=== PATIENT | female | born 1950 | race Caucasian/White ===

== ENCOUNTER 2016-08-02 20:01 | Inpatient (IN) | payer MEDICARE, OTHER ==
--- NOTE | ~2016-08-02 | HP ---
History And Physical [address] [place]. [address] NAME: MONCHO MORRISON : 54 STATUS : ADM IN [facility]#: [id number] AGE: 65 ADM/REG DATE : 08/02/16 MR#: [id number] REPORT SERV DATE: 08/03/16 DICTATED BY: MICHELLE HANDLEY DATE: 08/02/16 REPORT STATUS : Draft TRANSCRIBED BY: MODL DATE: 08/02/16 DATE OF ADMISSION: 08/02/2016 CHIEF COMPLAINT: Shortness of breath, uncontrolled blood sugar. Direct admission/transfer from outside hospital facility. HISTORY OF THE PRESENT ILLNESS: Obtained from the patient as well as from reports to our Hospitalist Service from [facility] at [facility] Emergency Room Department, has requested direct admission under our Hospitalist Service. Also, prior medical records available to us were thoroughly reviewed. According to the information available, the patient is a pleasant 65-year-old white woman with known history of COPD on chronic home oxygen at 2 L of oxygen by nasal cannula. Presently not smoking, chronic pain syndrome, diabetes type 2, insulin dependent, who was brought to [facility] Emergency Room Department because of increasing shortness of breath. The patient states that she started getting short of breath two or three days ago when some of her friends smoking around her. Since then, the patient has started to have a cough mostly nonproductive, but also chest tightness with the shortness of breath. No diaphoresis. No palpitations. The patient had used the regular bronchodilators that she has at home and has continued on oxygen supplementation with no relief, therefore today she called EMS. Upon arrival to [facility] Emergency Room Department, the patient was noticed to have a moderate respiratory distress, tachypneic on oxygen saturation around 92% on 2 L by nasal cannula. Further investigation at [facility] Emergency Room Department revealed a possible UTI as well as elevated white cell count of 17.9. She has received treatment with bronchodilators, IV Lasix. Continue oxygen supplementation with the improvement in her symptoms. Therefore, the patient was referred to our Hospitalist Service as a direct admission/transfer for further management and evaluation. The patient upon arrival does not have any chest pain. She is hungry and she still has some short of breath, still on 3 L of oxygen by nasal cannula with improvement symptomatically of her shortness of breath and dyspnea and lower extremity edema. PAST MEDICAL HISTORY: As above. Significant for COPD/asthma, presently on chronic home oxygen on 2 L of oxygen by nasal cannula. History of sleep apnea, on CPAP at night. History of CHF, diastolic dysfunction. History of atrial fibrillation, presently in normal sinus rhythm. Follow up by Dr. Perdue, Cardiology at [facility]. History of hypertension. History of reported coronary artery disease, uncertain about details on anatomy of her coronary arteries. History of diabetes type 2, on insulin. History of hyperlipidemia, obesity. History of chronic pain syndrome and chronic lower back pain with opioid dependence. History of depression and anxiety with panic attacks. History of cerebrovascular disease with prior CVA by report. History of GERD. History of osteoarthritis. PAST SURGICAL HISTORY: Many surgical intervention including hysterectomy, cholecystectomy in 2010, previously bilateral tubal ligation, bilateral foot surgery, hemorrhoidectomy, abdominal hernia repairs x4, several cardiac catheterization, vaginal and rectal tear repair, bladder tack, bilateral eye surgery, blepharoplasty, bilateral carpal tunnel release, trigger finger release on the left fourth finger, back surgery several times in History And Physical [address] [address] NAME: MONCHO MORRISON : 54 STATUS : ADM IN [facility]#: [id number] AGE: 65 ADM/REG DATE : 08/02/16 MR#: [id number] REPORT SERV DATE: 08/03/16 DICTATED BY: MICHELLE HANDLEY DATE: 08/02/16 REPORT STATUS : Draft TRANSCRIBED BY: MODTim DATE: 08/02/162011 as well as in 2016. ALLERGIES: TO STADOL, PENICILLIN, SULFA ANTIBIOTIC, CODEINE, ASPIRIN, IBUPROFEN, DOXYCYCLINE. HOME MEDICATION LIST: According to the list provided, the patient is supposed to take Norvasc 10 mg p.o., q.h.s., Flonase nasal spray two sprays each nostril q.h.s., Lasix 40 mg p.o. b.i.d., Atarax 50 mg p.o. b.i.d. scheduled (prescribed 4 times a day), Eliquis 5 mg p.o. b.i.d., Neurontin 800 mg p.o. t.i.d., Lantus insulin 40 units subcu b.i.d., lisinopril 40 mg p.o. daily, NovoLog sliding scale as per sliding scale at home q.i.d., Opana extended release 10 mg p.o. b.i.d., oxycodone 20 mg p.o. q.i.d. scheduled for pain, Protonix 40 mg p.o. daily, Klonopin 0.5 mg p.o. daily p.r.n. anxiety, Breo Ellipta 100/25 mcg one inhalation daily, albuterol Ventolin inhaler 2 puffs inhalation q.i.d., p.r.n. shortness of breath, Prozac 20 mg p.o. daily, Toprol-XL 100 mg p.o. b.i.d., potassium KCl 20 mEq p.o. daily, vitamin B12 1000 mcg IM every month, Mucinex 600 mg p.o. b.i.d. scheduled, albuterol nebulizer one inhalation q.i.d., p.r.n. shortness of breath. FAMILY HISTORY: Significant for coronary artery disease, hypertension, ovarian cancer, and other forms of female cancer, diabetes and prior stroke. SOCIAL HISTORY: She lives with family. . Denies tobacco abuse. Denies alcohol abuse. Denies illicit recreational drug abuse. She used to smoke in the past. REVIEW OF SYSTEMS: As per H and P, otherwise negative in all review of systems. Please note, the comprehensive review of system was obtained and pertinent positives were including in the H and P. PHYSICAL EXAMINATION: GENERAL: Pleasant, co-operant, mild respiratory distress. Significantly improved presently from the initial presentation at [facility] emergency room [place]. VITAL SIGNS: Upon arrival on our floor: Blood pressure 157/76, pulse 78, respiratory rate 18, temperature 98.7, oxygen saturation 96% on 3 L by nasal cannula. HEENT: Pupils equal, round, and reactive to light. Extraocular movements intact. Throat, mild erythema. No exudate. NECK: Supple. No JVD. No bruits. No thyromegaly. No lymph nodes. LUNGS: Bilateral air entry. Good airway movement. Few scattered wheezes bilaterally and few bibasilar crackles. HEART: Positive S1, S2. Regular rate and rhythm. Positive mitral regurgitation. Murmur at the apex. PMI not displaced by palpation. No rub. No gallop. ABDOMEN: Positive bowel sounds. Soft, obese, nontender, no guarding, no hepatosplenomegaly. EXTREMITIES: Decreased range of motion. Osteoarthritic changes. No clubbing, no cyanosis. +1 to +2 edema of bilateral calves. No calf tenderness. +2 pulses. NEUROLOGIC: Alert and oriented x3. Grossly nonfocal. Cranial nerves 2 though 12 grossly intact. Motor strength 5/5 symmetrical bilateral. Deep tendon reflexes 2/2 symmetrical bilateral. Appropriate mood and affect, even though slightly anxious upon initial presentation. BACK: Decreased range of motion. No focal localized tenderness. No CVA tenderness. History And Physical [address] [address] NAME: MONCHO MORRISON : 54 STATUS : ADM IN [facility]#: [id number] AGE: 65 ADM/REG DATE : 08/02/16 MR#: [id number] REPORT SERV DATE: 08/03/16 DICTATED BY: MICHELLE HANDLEY DATE: 08/02/16 REPORT STATUS : Draft TRANSCRIBED BY: YASMINE DATE: 08/02/16 SKIN: No bruises, no rashes, no lacerations. SIGNIFICANT LABORATORY DATA: No laboratory data available as the patient is a direct admission/transfer from outside hospital facility. Review of the medical records sent over of the patient from [facility] Emergency Room Department showed white cell count 17.9, hemoglobin 12.7, platelet count 214. Chest x-ray by report from [facility] show a chronic interstitial changes. No acute abnormality. BNP 123, which is slightly elevated. EKG (personal reading) showed normal sinus rhythm at 67 beats per minute. No acute ST elevation. Troponin I 0.01, which is within normal limits. Sodium 125, potassium of 4.9, chloride 86, bicarb 27, BUN 32, creatinine 1.4, glucose 685. Calcium at 9.2. Liver function tests within normal limits. CK#1 152, hyperglycemia of 685, corrected sodium again was 134, which is within normal limits. Urinalysis showed largely white cells 10 to 25, 3+ bacteria, moderate blood. ABG done on room air showed pH 7.35/PaCO2 of 46/PO2 of 64. ASSESSMENT AND PLAN AND PROBLEM LIST: The patient is a pleasant 65-year-old white woman, admitted as a direct admission/transfer from [facility] Emergency Room Department for chronic obstructive pulmonary disease exacerbation, urinary tract infection, severely uncontrolled diabetes, and reported chest pain. IMPRESSION: 1. Pulmonary. a. Chronic obstructive pulmonary disease exacerbation acute. b. Acute on chronic hypoxemic respiratory failure. c. Obstructive sleep apnea, on CPAP machine at night. For all the above, the patient has been admitted on the Hospitalist Service under telemetry setting. We are going to continue oxygen supplementation. We are going to provide bronchodilator therapy with Dulera 200/5 two puffs b.i.d. and DuoNeb, IV Solu-Medrol with rapid tapering has lot of improvement in her symptoms. Continue antibiotic coverage as the patient has received Levaquin already at [facility] Emergency Room Department. We are going to continue symptomatic treatment and oxygen supplementation, Mucinex DM, Flonase nasal spray, and continue to use home CPAP machine at night. 2. Urinary tract infection with hematuria likely acute cystitis. Repeat urine culture and continue to monitor urine culture from [facility] Emergency Room Department. Continue Levaquin 750 mg IV daily. 3. Cardiovascularly:. a. Chest pain, atypical, but with moderate risk for coronary artery disease etiology. b. Paroxysmal atrial fibrillation, now in normal sinus rhythm. c. Hypertension, essential hypertension. d. Acute on chronic diastolic dysfunction, congestive heart failure. For all the above, we are going to continue to monitor CK and troponin I, monitor EKG. Evaluate prior available 2D echo. Continue DONATO inhibitor and continue gentle IV diuresis with IV Lasix. Use IV hydralazine p.r.n. for increased blood pressure. Continue Eliquis for now. 4. Endocrinology problem :. a. Diabetes type 2, insulin dependent, severely uncontrolled with complications including hyperglycemia. For all the above, we are going to continue History And Physical [address] [address] NAME: MONCHO MORRISON : 54 STATUS : ADM IN PAT#: [id number] AGE: 65 ADM/REG DATE : 08/02/16 MR#: [id number] REPORT SERV DATE: 08/03/16 DICTATED BY: MICHELLE HANDLEY DATE: 08/02/16 REPORT STATUS : Draft TRANSCRIBED BY: YASMINE DATE: 08/02/16 long-acting insulin with Lantus/Levemir, sliding scale with insulin, provide diabetic education and dietary changes. b. Hyperlipidemia, mixed type. Check lipid profile in the a.m. Consider to have the statin. c. Obesity, recommend weight loss and moderate structured exercise. 5. Neurologic and psychiatric problem with:. a. Chronic pain syndrome with chronic back pain and opioid dependence. We are going to restart the patient's chronic pain medications. Use extra IV morphine p.r.n. for increased pain control. b. Anxiety and panic attacks and depression. Continue home medications. Provide emotional support. 6. Cerebrovascular disease with prior history of cerebrovascular accident. Continue blood pressure management. Lipid management. Consider to start the aspirin. 7. Gastroesophageal reflux disease without esophagitis. Continue Protonix anti- reflux/anti-gastroesophageal reflux disease instructions discussed with the patient. 8. Osteoarthritis, osteoporosis, deconditioning, and debilitation. Provide adequate pain control. Consider physical therapy evaluation. PROGNOSIS: Moderately good for this admission. Discussed with patient. Questions were answered in full. Please note, the patient is a full code at this moment as discussed with the patient at baseline. Please note also the written H and P, and written orders and instructions. RF/YASMINE Michelle Handley M.D. / [id number] CC: Lupe Major M.D. Chun C. Huang, MD
--- NOTE | ~2016-08-02 | DS ---
Discharge Summary [facility] [address] [place]. [address] NAME: MONCHO MORRISON : 54 STATUS : DIS IN PAT#: [id number] AGE: 65 ADM/REG DATE : 08/02/16 MR#: [id number] REPORT SERV DATE: 08/06/16 DICTATED BY: JENNY VILLAGOMEZ DATE: 08/05/16 REPORT STATUS : Draft TRANSCRIBED BY: MODL DATE: 08/05/16 ADMISSION DATE: 08/02/2016 DISCHARGE DATE: 08/05/2016 DISCHARGE DIAGNOSES: 1. Diabetes mellitus with uncontrolled status with hyperglycemia, persistent. The patient's insulin was increased and it is better controlled and clinically improved. 2. BMI 43. 3. Chronic pain management, chronic opioid use. 4. UTI with Escherichia coli. The patient will be discharged with nitrofurantoin. She was asymptomatic. 5. Chronic Eliquis use. 6. Hyponatremia secondary to hyperglycemia. 7. Chronic kidney disease. HISTORY OF PRESENT ILLNESS: This is a 65-year-old female patient, who came to the hospital with chest tightness and wheezing at the local emergency room, was found to have significant chest tightness, and the patient was transferred to [facility] for that reason. Please see dictated H and P. HOSPITAL COURSE: She was admitted to hospital with multiple medical problems including uncontrolled diabetes with morbid obesity, sleep apnea, chronic pain medication use, and also possibly volume overload, and she was found to have significant hyponatremia because of the hyperglycemia. She was treated with increased IV diuretics and IV steroid, and improved. However, her sugar remained in high status. Her insulin was adjusted and now, her sugar is much improved and kidney function and other lab work are also improved. She does not have any wheezing or tightness anymore. She takes furosemide twice a day at home and we are going to continue that medical treatment. Informed that she needs to use CPAP when she is taking a nap. She voiced understanding. Also, her insulin was increased. She will be discharged to home in stable condition with followup with her primary care physician. Increased insulin dose. DISCHARGE MEDICATIONS: Continue Norvasc 10 mg once a day, Eliquis 5 mg twice a day, Prozac 20 mg once in the morning time, Flonase once a day, Neurontin 300 mg three times a day, Mucinex twice a day, Lantus was increased to 75 units twice a day, NovoLog was increased 15 units before meal, Toprol-XL 100 mg twice a day, Protonix 40 mg once a day, vitamin B12 once a day, hydroxyzine 50 mg twice a day, Roxicodone 20 mg four times a day, Opana 10 mg twice a day, albuterol as needed, Lasix 40 mg twice a day, Klonopin 0.5 mg as needed, Breo once a day, Ventolin twice a day, potassium was discontinued, and a few more days of prednisone. TIME SPENT: More than 30 minutes in patient education and coordination. DICTATED BY: Jenny Villagomez M.D. Discharge Summary [address] [facility] [place] [address] NAME: MONCHO MORRISON : 54 STATUS : DIS IN PAT#: [id number] AGE: 65 ADM/REG DATE : 08/02/16 MR#: [id number] REPORT SERV DATE: 08/06/16 DICTATED BY: JENNY VILLAGOMEZ DATE: 08/05/16 REPORT STATUS : Draft TRANSCRIBED BY: YASMINE DATE: 08/05/16 LUPE/YASMINE Jenny Villagomez M.D. / [id number] CC: Lupe Major M.D.
[~2016-08-02 20:01] MED LIST: *UNABLE2; ALBUTEROL0.63 MG/3; ALBUTEROL0.63 MG/3 INH; ATARAX50B; ATARAX50B PO; B121000P; B121000P IM; B121000P IM/SC; BREO ELLIPTA; BREO ELLIPTA INH; BYETTA SC; CARTIA XT120 MG/24 PO; DULERA 200 MCG/13 GM INH; ELIQUIS 5 MG TAB5 MG; ELIQUIS 5 MG TAB5 MG PO; FERROUS SULF325 M1; FLONASE; FLONASE NAS; IMOD PO; KDUR10 PO; KLONO5; KLONO5 PO; KLOR-CON 1010 MEQ PO; KOMBIGLYZE XR1 EACH PO; L40; L40 PO; LANTUS SC; LANTUSCART; LANTUSCART SC; LIPITOR20 PO; LISINOPRIL40 MG; LISINOPRIL40 MG PO; LOZOLTAB; LOZOLTAB PO; MAGOX4 PO; MUCINEX600 MG PO; NEUR800; NEUR800 PO; NORV5 PO; NOVOLOG SC; NOVOPEN; OPANA ER10 MG; OPANA ER10 MG PO; OPANA ER15 MG PO; OXYCOD; OXYCOD PO; OXYIR5 MG PO; P20 PO; PRIN20 PO; PROAIR HFA INH; PROTONIX; PROTONIX PO; PROVENTSOL INH; PROZAC; PROZAC PO; ROXICODONE15 MG PO; TOPXL100; TOPXL100 PO; TOPXL50; Toprol Xl; VENTOLIN HFA; VENTOLIN HFA INH; ZITH250 PO; [UNRECOGNIZED DRUG - OTHER] PO; [UNRECOGNIZED DRUG - REMARK] PO
[2016-08-02] MEDS ORDERED: NORV5 PO (20:55)
[2016-08-02] MEDS ORDERED: FLONASE NAS (20:56)
[2016-08-02] MEDS ORDERED: L40 PO (20:56)
[2016-08-02] MEDS ORDERED: NEUR800 PO (20:57)
[2016-08-02] MEDS ORDERED: ELIQUIS 5 MG TAB5 MG PO (20:57)
[2016-08-02] MEDS ORDERED: ATARAX50B PO (20:57)
[2016-08-02] MEDS ORDERED: NOVOPEN SC (20:58)
[2016-08-02] MEDS ORDERED: LANTUSCART SC (20:58)
[2016-08-02] MEDS ORDERED: LISINOPRIL40 MG PO (20:58)
[2016-08-02] MEDS ORDERED: OXYCOD PO (20:59)
[2016-08-02] MEDS ORDERED: OPANA ER10 MG PO (20:59)
[2016-08-02] MEDS ORDERED: PROTONIX PO (21:00)
[2016-08-02] MEDS ORDERED: KLONO5 PO (21:00)
[2016-08-02] MEDS ORDERED: VENTOLIN HFA INH (21:01)
[2016-08-02] MEDS ORDERED: BREO ELLIPTA INH (21:01)
[2016-08-02] MEDS ORDERED: PROZAC PO (21:02)
[2016-08-02] MEDS ORDERED: KDUR20 PO (21:02)
[2016-08-02] MEDS ORDERED: TOPXL100 PO (21:02)
[2016-08-02] MEDS ORDERED: B121000P IM (21:03)
[2016-08-02] MEDS ORDERED: MUCINEX600 MG PO (21:04)
[2016-08-02] MEDS ORDERED: ALBUTEROL0.083 % INH (21:07)
[2016-08-02 22:39] LABS: BASOPHILS 0.1 %; BASOPHILS ABSOLUTE 0.01 10/3/uL (0.0-0.16); EOSINOPHILS 0.2 %; EOSINOPHILS ABSOLUTE 0.04 10/3/uL (0.0-0.53); HEMATOCRIT 39.9 % (36.0-48.0); HEMOGLOBIN 13.3 g/dL (12.0-16.0); IMMATURE GRANULOCYTES 0.4 %; IMMATURE GRANULOCYTES ABSOLUTE 0.07 10/3/uL (0.0-0.11); LYMPHOCYTES 1.9 %; LYMPHOCYTES ABSOLUTE 0.32 10/3/uL (0.67-4.30); MEAN CORPUS HGB CONC 33.3 g/dL (32.0-36.0); MEAN CORPUSCULAR HEMOGLOB 28.1 pg (26.0-34.0); MEAN PLATELET VOLUME 10.9 fL (9.2-13.0); MONOCYTES 3.1 %; MONOCYTES ABSOLUTE 0.53 10/3/uL (0.21-1.20); NEUTROPHILS 94.3 %; NEUTROPHILS ABSOLUTE 16.26 10/3/uL (2.02-8.40); RBC DISTRIBUTION WIDTH 13.7 % (12.0-16.0); RED CELL COUNT 4.73 10/6/uL (4.0-5.6)
[2016-08-02 22:40] LABS: MANUAL DIFF NO %; MEAN CORPUSCULAR VOLUME 84.4 fL (80-100); PLATELET COUNT 263 10/3/uL (150-400); WHITE BLOOD CELLS 17.2 10/3/uL (4.5-10.5)
[2016-08-02 22:58] LABS: B NATRIURETIC PEPTIDE (BNP) 109.1 PG/ML (< 100.0)
[2016-08-02 23:04] LABS: A/G RATIO 0.7 (0.7-1.9); ALKALINE PHOSPHATASE 100 U/L (45-117); CALCIUM, SERUM 8.7 MG/DL (8.5-10.4); CHLORIDE, SERUM 91 MMOL/L (96-112); FERRITIN 186 NG/ML (8-252); GLOBULIN 4.2 G/DL (2.5-4.1); IRON BINDING CAPACITY 305 MCG/DL (225-410); IRON, SERUM 38 MCG/DL (35-150); SGOT(AST) 37 U/L (5-40); SGPT(ALT) 57 U/L (5-65); TOTAL BILIRUBIN 0.3 MG/DL (0-1.2); TOTAL PROTEIN 7.2 G/DL (6.0-8.5); TROPONIN I <0.02 NG/ML (<0.05)
[2016-08-02 23:05] LABS: BUN (BLOOD UREA NITROGEN) 40 MG/DL (6-23); CK-MB 2.4 NG/ML; CO2 (CARBON DIOXIDE) 28 MMOL/L (24-34); CPK 118 U/L (0-200); CREATININE 1.83 MG/DL (0.55-1.02); GFR AFRICAN AMERICAN 33 ML/MIN (>=60); GFR NON AFRICAN AMERICAN 29 ML/MIN (>=60); GLUCOSE, SERUM 418 MG/DL (60-99); PHOSPHORUS, SERUM 4.1 MG/DL (2.5-4.5); SODIUM, SERUM 126 MMOL/L (135-148)
[2016-08-03 02:45] LABS: ASCORBIC ACID (UR NOT ORDER) NEG (NEG); BILIRUBIN, URINE NEGATIVE (NEG); KETONE, URINE NEGATIVE (NEG); LEUKOCYTE ESTERASE(NOT OR LARGE (NEG); WBC (NOT ORDERED) (RFLEX) 175 (0-5)
[2016-08-03 06:20] LABS: HEMATOCRIT 38.9 % (36.0-48.0); MEAN CORPUS HGB CONC 33.4 g/dL (32.0-36.0); MEAN CORPUSCULAR HEMOGLOB 28.3 pg (26.0-34.0); MEAN CORPUSCULAR VOLUME 84.6 fL (80-100); PLATELET COUNT 221 10/3/uL (150-400); RBC DISTRIBUTION WIDTH 13.8 % (12.0-16.0); WHITE BLOOD CELLS 12.9 10/3/uL (4.5-10.5)
[2016-08-03 06:21] LABS: ALBUMIN 2.9 G/DL (3.5-5.0); CALCIUM, SERUM 8.7 MG/DL (8.5-10.4); CHLORIDE, SERUM 91 MMOL/L (96-112); CHOL/HDL RATIO(NOT ORDER) 3.3 (0-5); CHOLESTEROL 160 MG/DL (< 200); CO2 (CARBON DIOXIDE) 28 MMOL/L (24-34); CREATININE 2.18 MG/DL (0.55-1.02); GFR AFRICAN AMERICAN 27 ML/MIN (>=60); GFR NON AFRICAN AMERICAN 23 ML/MIN (>=60); GLUCOSE, SERUM 350 MG/DL (60-99); HDL CHOLESTEROL 49 MG/DL (> 49); LDL CHOLESTEROL 90 MG/DL (< 130); NON-HDL CHOLESTEROL 111 MG/DL (< 160); PHOSPHORUS, SERUM 4.3 MG/DL (2.5-4.5); SODIUM, SERUM 129 MMOL/L (135-148); TRIGLYCERIDE 106 MG/DL (< 150); TROPONIN I <0.02 NG/ML (<0.05)
[2016-08-03 06:22] LABS: BUN (BLOOD UREA NITROGEN) 44 MG/DL (6-23); MANUAL DIFF YES %; POTASSIUM, SERUM 5.7 MMOL/L (3.5-5.3)
[2016-08-03 06:23] LABS: CK-MB 1.3 NG/ML; CPK 102 U/L (0-200)
[2016-08-03 07:24] LABS: BAND NEUTROPHILS 3 %; LYMPHOCYTES 2 %; LYMPHOCYTES ABSOLUTE (CALC) 0.26 10/3/uL (0.67-4.30); MONOCYTES 1 %; MONOCYTES ABSOLUTE (CALC) 0.13 10/3/uL (0.21-1.20); NEUTROPHILS ABSOLUTE (CALC) 12.51 10/3/uL (2.02-8.40); PLATELET ESTIMATE ADQ (ADEQUATE); RBC MORPHOLOGY NORM (NORMAL); SEGMENTED NEUTROPHIL (0) 94 %; TOTAL NUCLEATED CELLS 100
[2016-08-03 12:45] LABS: GLYCOHEMOGLOBIN (HbA1c) 12.7 % (4.7-6.1)
[2016-08-03 14:29] LABS: PROCALCITONIN 0.31 ng/mL (<0.5)
[2016-08-04 05:45] LABS: BASOPHILS 0 %; EOSINOPHILS 0 %; HEMATOCRIT 36.8 % (36.0-48.0); HEMOGLOBIN 12.3 g/dL (12.0-16.0); IMMATURE GRANULOCYTES 0.6 %; IMMATURE GRANULOCYTES ABSOLUTE 0.07 10/3/uL (0.0-0.11); LYMPHOCYTES 4.8 %; LYMPHOCYTES ABSOLUTE 0.59 10/3/uL (0.67-4.30); MEAN CORPUS HGB CONC 33.4 g/dL (32.0-36.0); MEAN CORPUSCULAR HEMOGLOB 28.5 pg (26.0-34.0); MEAN CORPUSCULAR VOLUME 85.2 fL (80-100); MONOCYTES ABSOLUTE 0.49 10/3/uL (0.21-1.20); NEUTROPHILS 90.6 %; NEUTROPHILS ABSOLUTE 11.24 10/3/uL (2.02-8.40); PLATELET COUNT 246 10/3/uL (150-400); RBC DISTRIBUTION WIDTH 13.8 % (12.0-16.0); RED CELL COUNT 4.32 10/6/uL (4.0-5.6); WHITE BLOOD CELLS 12.4 10/3/uL (4.5-10.5)
[2016-08-04 05:47] LABS: MANUAL DIFF NO %
[2016-08-04 05:53] LABS: CALCIUM, SERUM 8.5 MG/DL (8.5-10.4); CHLORIDE, SERUM 87 MMOL/L (96-112); CO2 (CARBON DIOXIDE) 24 MMOL/L (24-34); POTASSIUM, SERUM 5.8 MMOL/L (3.5-5.3)
[2016-08-04 05:58] LABS: BUN (BLOOD UREA NITROGEN) 75 MG/DL (6-23); GFR AFRICAN AMERICAN 18 ML/MIN (>=60); GFR NON AFRICAN AMERICAN 15 ML/MIN (>=60); GLUCOSE, SERUM 443 MG/DL (60-99); SODIUM, SERUM 122 MMOL/L (135-148)
[2016-08-05 06:49] LABS: CALCIUM, SERUM 9.2 MG/DL (8.5-10.4); POTASSIUM, SERUM 5.7 MMOL/L (3.5-5.3)
[2016-08-05 06:51] LABS: BUN (BLOOD UREA NITROGEN) 68 MG/DL (6-23); CHLORIDE, SERUM 97 MMOL/L (96-112); CO2 (CARBON DIOXIDE) 29 MMOL/L (24-34); CREATININE 1.61 MG/DL (0.55-1.02); GFR AFRICAN AMERICAN 39 ML/MIN (>=60); GFR NON AFRICAN AMERICAN 34 ML/MIN (>=60); GLUCOSE, SERUM 177 MG/DL (60-99); SODIUM, SERUM 133 MMOL/L (135-148)
[2016-08-05] MEDS ORDERED: MACROBID PO (11:47)
[2016-08-05] MEDS ORDERED: STERAPRED DS10 MG PO (11:48)
[2016-09-05] MEDS ORDERED: LISINOPRIL40 MG PO (11:05)
[2016-09-08] MEDS ORDERED: K500 PO (10:19)
[2016-09-08] MEDS ORDERED: AT25 PO (10:20)
[2016-09-08] MEDS ORDERED: LISINOPRIL40 MG PO (10:20)
[2016-10-07] MEDS ORDERED: NORV5 PO (22:18)
[2016-10-07] MEDS ORDERED: PROZAC PO (22:19)
[2016-10-07] MEDS ORDERED: ELIQUIS 5 MG TAB5 MG PO (22:19)
[2016-10-07] MEDS ORDERED: B121000P IM/SC (22:19)
[2016-10-07] MEDS ORDERED: FLONASE NAS (22:20)
[2016-10-07] MEDS ORDERED: BREO ELLIPTA INH (22:21)
[2016-10-07] MEDS ORDERED: NEUR800 PO (22:21)
[2016-10-07] MEDS ORDERED: L40 PO (22:21)
[2016-10-07] MEDS ORDERED: OXYCOD PO (22:22)
[2016-10-07] MEDS ORDERED: ATARAX50B PO (22:22)
[2016-10-07] MEDS ORDERED: OPANA ER10 MG PO (22:22)
[2016-10-07] MEDS ORDERED: PROTONIX PO (22:23)
[2016-10-07] MEDS ORDERED: LANTUSCART SC (22:23)
[2016-10-07] MEDS ORDERED: NOVOPEN SC (22:23)
[2016-10-07] MEDS ORDERED: TOPXL100 PO (22:25)
[2016-10-07] MEDS ORDERED: LISINOPRIL40 MG PO (22:25)
[2016-10-07] MEDS ORDERED: X5 PO (22:26)
[2016-10-07] MEDS ORDERED: ALBUTEROL0.083 % INH (22:27)
[2016-10-07] MEDS ORDERED: VENTOLIN HFA INH (22:27)
== END 2016-08-05 14:32 | disposition home or self-care (01) | DRG 291 ==
LOC: 5NO 20:01
PROVIDERS: Internal Medicine
DX: I13.0 Hypertensive heart and chronic kidney disease with heart failure and stage 1 through stage 4 chronic kidney disease, or unspecified chronic kidney disease (principal); J96.21 Acute and chronic respiratory failure with hypoxia; Z99.81 Dependence on supplemental oxygen; I50.33 Acute on chronic diastolic (congestive) heart failure; N39.0 Urinary tract infection, site not specified; Z68.41 Body mass index [BMI] 40.0-44.9, adult; E87.1 Hypo-osmolality and hyponatremia; J44.1 Chronic obstructive pulmonary disease with (acute) exacerbation; E11.65 Type 2 diabetes mellitus with hyperglycemia; Z79.4 Long term (current) use of insulin; B96.20 Unspecified Escherichia coli [E. coli] as the cause of diseases classified elsewhere; Z79.01 Long term (current) use of anticoagulants; N18.9 Chronic kidney disease, unspecified; Z79.891 Long term (current) use of opiate analgesic; E66.01 Morbid (severe) obesity due to excess calories; G89.4 Chronic pain syndrome; F32.9 Major depressive disorder, single episode, unspecified; F41.9 Anxiety disorder, unspecified; Z86.73 Personal history of transient ischemic attack (TIA), and cerebral infarction without residual deficits; Z90.49 Acquired absence of other specified parts of digestive tract; Z90.710 Acquired absence of both cervix and uterus; Z98.51 Tubal ligation status; Z88.0 Allergy status to penicillin; Z88.2 Allergy status to sulfonamides; Z88.1 Allergy status to other antibiotic agents; Z88.6 Allergy status to analgesic agent; M19.90 Unspecified osteoarthritis, unspecified site; M81.0 Age-related osteoporosis without current pathological fracture
CPT/HCPCS: 71020; 80048; 80053; 80061; 80069; 81001; 82150; 82550; 82553; 82728; 82962; 83036; 83540; 83550; 83605; 83690; 83735; 83880; 84100; 84145; 84443; 84484; 85025; 87040; 87077; 87086; 87186; 93005; 94640; 94660; A9270-GY; J1956; J2930

== ENCOUNTER 2016-11-03 21:13 | Inpatient (IN) | payer MEDICARE, OTHER ==
[~2016-11-03] VITALS: Ht 162.6 cm; Wt 120.7 kg
--- NOTE | ~2016-11-03 | CN ---
Consultation Report [facility] [address] [place]. [address] NAME: MONCHO MORRISON : 54 STATUS : ADM IN PAT#: [id number] AGE: 65 ADM/REG DATE : 11/04/16 MR#: [id number] REPORT SERV DATE: 11/05/16 DICTATED BY: SHREE JONES DATE: 11/04/16 REPORT STATUS : Draft TRANSCRIBED BY: MODL DATE: 11/04/16 DATE OF CONSULTATION: CHIEF COMPLAINT: Severe upper and mid thoracic pain. HISTORY OF PRESENT ILLNESS: A 65-year-old morbidly obese female, with a prior history of severe spinal stenosis, multilevel as well as degenerative scoliosis. In July of 2015, the patient underwent a wide decompression with posterolateral spinal fusion and instrumentation. The patient has slow gradual recovery. She has not had any obvious signs of infection in postop recovery. She has been hospitalized recently for respiratory issues. She has been in and out of rehab facilities frequently. She now currently at home has a relative who stays at night and a home nurse who comes a few hours per day, etc. She spends most of her time in a wheelchair. She ambulates very little. She has had a long-standing left drop foot even prior to her surgery in 07/2015 that persists. On the left, she does have an AFO. Unsure about compliance usage of the AFO. The patient recently has fallen "4 times." She feels her leg just will not support her. She has slipped down out of bed once. She has slipped down out of her wheelchair 3 times. She has not had loss of bowel and bladder control. She was found to have normal white count with sedimentation rate and CRP have been elevated, but urinalysis is positive for large amounts of leukocyte esterase and is positive for nitrites. She has an obvious UTI, has been treated with some Levaquin. I have been asked to see with regard to her back pain. Currently, she rates the pain as 9 or 10 on a scale of 0-10, seems to be worse with any kind of movement and activity. She has a very low activity level for sure at this time. Past medical history, surgical history, current medications, allergies, social history were taken from the history and physical and see that for detail. PHYSICAL EXAMINATION: On physical exam, she is in the bed. She was noted to turn herself in bed. She was supine and turned over side. The whole time I was in the room with her, she was complaining of pain and moaning. The previous incision is well healed. There are no signs of swelling or erythema. There are no subcutaneous fluid collections. I did not do any kind of motion analysis. Straight leg raising signs are negative. Her motor strengths actually except for the left-sided drop foot which is 2/5. The all other muscle groups are 5/5. Reflexes are absent bilaterally. Toes are downgoing. No ankle clonus found. The stocking-glove decreased sensation from just above the knees distally bilaterally. She has no major pain with log rolling of the hips. Pulses are weak in all four extremities. ASSESSMENT: 1. Status post thoracolumbar fusion for severe spinal stenosis, has degenerative scoliosis with a flat back deformity. 2. Morbid obesity. Consultation Report [address] [place]. [address] NAME: MONCHO MORRISON : 54 STATUS : ADM IN [facility]#: [id number] AGE: 65 ADM/REG DATE : 11/04/16 MR#: [id number] REPORT SERV DATE: 11/05/16 DICTATED BY: SHREE JONES DATE: 11/04/16 REPORT STATUS : Draft TRANSCRIBED BY: YASMINE DATE: 11/04/16 3. Chronic long-standing left drop foot. 4. Multiple falls recently with increasing back pain. 5. CT evidence of endplate irregularity in the midthoracic spine, but we have no films to review. RECOMMENDATION: At this time, I will ask for Anesthesia to assist with an MRI of the thoracic and lumbar spine. No contrast will be utilized. The patient is certainly not a candidate for any significant additional surgery due to all her medical comorbidities. If she had any indication of diskitis or osteomyelitis, there would need to be a CT-guided biopsy and ultimately IV antibiotics for treatment as she is not a surgical candidate. JOVAN/YASMINE Shree Jones D.O. / [id number] CC: Carmen Junior M.D.
--- NOTE | ~2016-11-03 | HP ---
History And Physical [facility] [address] [place]. [address] NAME: MONCHO MORRISON : 54 STATUS : ADM IN PAT#: [id number] AGE: 65 ADM/REG DATE : 11/04/16 MR#: [id number] REPORT SERV DATE: 11/04/16 DICTATED BY: PILAR ROMERO DATE: 11/04/16 REPORT STATUS : Draft TRANSCRIBED BY: MODL DATE: 11/04/16 DATE OF ADMISSION: 11/04/2016 POINT OF ENTRY: Transferred from [facility] Emergency Department. CHIEF COMPLAINT: Falls, back pain, weakness, confusion. HISTORY OF PRESENT ILLNESS: Ms. Morrison as a 65-year-old female with a history of COPD, on 2 L by nasal cannula; obstructive sleep apnea, on nocturnal BiPAP therapy; chronic diastolic congestive heart failure; uncontrolled insulin-dependent diabetes mellitus, type 2 with diabetic neuropathy as well as paroxysmal atrial fibrillation, on anticoagulation, who presented to [facility] Emergency Department today with reports of multiple mechanical falls at home with weakness, back pain, and confusion. The patient was recently admitted to [facility] in September and was discharged in late September to [facility]. The patient states she is now back at home and has a caregiver about six hours a day and family watches and cares for the rest of the day. The patient states that she fell three times today. She feels as if falls are due to lower extremity weakness. She describes a sensation of her legs in particular around her knees buckling underneath her weight. After her last fall, she developed some severe lower abdominal pain worse than her chronic lower back pain for which she takes chronic narcotics. There also is some report by family who is not currently at bedside that the patient was confused; however, the patient denies any troubles with confusion. Initial evaluation at [facility] notable for stable vitals, but with a BUN of 30, creatinine 2.0, and a potassium level 5.3. There was some evidence of urinary tract infection; however, it was not a clean sample. CT scan of the brain was negative. CT scan of thoracic and lumbar spine was negative for any acute fracture, but does show some thoracic endplate erosions concern for possible osteomyelitis or diskitis. The patient was given some Levaquin for the urinary tract infection and transferred to [facility] for higher level of care. The patient denies any recent fevers, night sweats, chills, chest pain, palpitations, shortness of breath, cough, sputum production, abdominal pain, nausea, vomiting, diarrhea, constipation, dysuria, melena, hematochezia, hemoptysis, or hematemesis. REVIEW OF SYSTEMS: Comprehensive review of systems otherwise negative unless listed in the history of present illness. PREVIOUS MEDICAL HISTORY: 1. COPD, on 2 L by nasal cannula. 2. Obstructive sleep apnea, on nocturnal BiPAP. 3. Uncontrolled insulin-dependent diabetes mellitus, type 2 with diabetic neuropathy. History And Physical [address] [address] NAME: MONCHO MORRISON : 54 STATUS : ADM IN [facility]#: [id number] AGE: 65 ADM/REG DATE : 11/04/16 MR#: [id number] REPORT SERV DATE: 11/04/16 DICTATED BY: PILAR ROMERO DATE: 11/04/16 REPORT STATUS : Draft TRANSCRIBED BY: YASMINE DATE: 11/04/16 Recent hemoglobin A1c of 12.7. 4. Chronic lower back pain, on chronic narcotics. 5. Morbid obesity. 6. Paroxysmal atrial fibrillation, on anticoagulation. 7. Chronic diastolic congestive heart failure. 8. Hypertension. 9. Hyperlipidemia. 10.GERD. 11.History of coronary artery disease. 12.History of stroke. 13.Depression. 14.Anxiety. 15.History of recurrent urinary tract infection. 16.History of multiple admissions for encephalopathy. 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 18.History of acute hypoxic and hypercarbic respiratory failure requiring intubation. SURGICAL HISTORY: 1. Abdominal hysterectomy. 2. Cholecystectomy. 3. Tubal ligation. 4. Carpal tunnel. 5. Eye surgery. 6. Bladder tack. 7. Back surgery. ALLERGIES: 1. PENICILLIN. 2. SULFA. 3. ASPIRIN. 4. CECLOR. 5. DOXYCYCLINE. 6. CLINDAMYCIN. 7. AZITHROMYCIN. 8. STADOL. 9. IBUPROFEN. HOME MEDICATIONS: This list needs to be confirmed by Pharmacy in the mornin. Albuterol two puff inhalation p.r.n. 2. Albuterol nebulization p.r.n. 3. Norvasc 5 mg at bedtime. 4. Eliquis 5 mg b.i.d. 5. Klonopin 0.5 mg daily p.r.n. 6. Vitamin B12 a 1000 mcg monthly. 7. Prozac 20 mg daily. 8. Flonase two sprays nasal at bedtime. 9. Breo Ellipta one puff inhalation daily. History And Physical [address] [address] NAME: MONCHO MORRISON : 54 STATUS : ADM IN PAT#: [id number] AGE: 65 ADM/REG DATE : 11/04/16 MR#: [id number] REPORT SERV DATE: 11/04/16 DICTATED BY: PILAR ROMERO DATE: 11/04/16 REPORT STATUS : Draft TRANSCRIBED BY: YASMINE DATE: 11/04/16 10.Lasix 40 mg b.i.d. 11.Gabapentin 800 mg t.i.d. 12.Atarax 50 mg q.6 hours p.r.n. 13.Insulin sliding scale. 14.Lantus 25 units b.i.d. 15.Lisinopril 40 mg daily. 16.Toprol-XL 100 mg b.i.d. 17.Roxicodone 20 mg q.i.d. p.r.n. 18.Opana ER 10 mg b.i.d. 19.Protonix 40 mg daily. SOCIAL HISTORY: She denies any tobacco, alcohol, or illicits. FAMILY MEDICAL HISTORY: Mother with hypertension and a history of cerebral aneurysm. Father with leukemia and hypertension. Siblings with ovarian cancer. LABS AND IMAGING: All obtained from transfer records from [facility] Emergency Department. 1. White count 9.2, hemoglobin 11.1, hematocrit 34.8, platelets 262. INR 1.6. 2. Sodium is 138, potassium 5.3, chloride 96, carbon dioxide 33, BUN 30, creatinine 2.0, glucose is 253, calcium is 8.8. Protein 6.8, albumin 3.7, bilirubin 0.3. ALT 27, AST 40, alkaline phosphatase is 49. 3. Troponin 0.02. BNP is 186, upper limit of normal BNP is less than 100. 4. CK-MB is 13.6. CPK is 495. 5. Urinalysis: Spec gravity is 1.015, cloudy with moderate leukocyte esterase, positive nitrites with 10 to 25 white blood cells per high-power field with 2+ bacteria but with 10 to 25 epithelial cells. 6. Chest x-ray per Radiology report shows moderate interstitial pulmonary edema. 7. EKG per my review shows normal sinus rhythm. No evidence of any acute ischemia or infarction. 8. Plain films of the right foot ankle, knee, and tibia-fibula region shows severe soft tissue swelling about the lateral malleolus, but no evidence of any acute fracture or dislocation. 9. CT scan of the brain shows no acute intracranial abnormality. 10.CT scan of thoracic and lumbar spine shows no acute fractures but does show some new appearing T8-T9 endplate erosions, which is concerning for possible osteomyelitis or diskitis. 11.Per review of [employer], the patient's last known creatinine value was 0.94, 10/11/2016. She had an echocardiogram done August of this year, which showed ejection fraction of 60% with normal RV function and size, but some mild diastolic dysfunction. PHYSICAL EXAMINATION: VITAL SIGNS: Temperature is 97.7 degrees Fahrenheit, pulse is 77, respirations 16, saturating 93% on 2 L by nasal cannula. Blood pressure 120/56. GENERAL: The patient is awake, alert, in no acute distress. Resting comfortably in bed. She is a well-developed, well-nourished, morbidly obese, female. History And Physical [address] [address] NAME: MONCHO MORRISON : 54 STATUS : ADM IN [facility]#: [id number] AGE: 65 ADM/REG DATE : 11/04/16 MR#: [id number] REPORT SERV DATE: 11/04/16 DICTATED BY: PILAR ROMERO DATE: 11/04/16 REPORT STATUS : Draft TRANSCRIBED BY: MODTim DATE: 11/04/16 HEENT: Atraumatic and normocephalic. Moist mucous membranes. Pupils are equal, round, reactive to light and accommodation. Extraocular eye movements are intact. No scleral icterus. NECK: No jugular venous distention. No carotid bruits. CARDIAC: Regular rate and rhythm. No murmurs or gallops. Normal S1, S2. LUNGS: Decreased breath sounds in the bases and prolonged respiratory phase, but no wheezes, rhonchi, or crackles. No respiratory distress. ABDOMEN: Soft, nontender, nondistended with good bowel sounds. No rebound, guarding, rigidity. EXTREMITIES: Warm ans well-perfused with trace to 1+ lower extremity edema bilaterally. SKIN: Warm and dry. PSYCH: Affect appropriate. NEURO: Alert and oriented x3. Cranial nerves 2 through 12 are grossly intact. Speech is normal. Gait is not assessed. ASSESSMENT AND PLAN: Ms. Morrison 65-year-old female who presents to [facility] with reports of multiple falls at home with weakness, back pain as well as reports of possible confusion and found to have evidence of urinary tract infection, acute kidney injury, hyperkalemia as well as concern for T8-T9 endplate erosions. PROBLEM LIST: 1. Multiple falls with weakness. 2. Acute on chronic back pain. 3. T8-T9 endplate erosions concerning for possible osteomyelitis versus diskitis. 4. Acute kidney injury. 5. Hyperkalemia. 6. Urinary tract infection. 7. Encephalopathy. 8. Insulin-dependent diabetes mellitus type 2 with hyperglycemia. 9. Chronic diastolic congestive heart failure. 10.COPD, on 2 L nasal cannula. 11.Obstructive sleep apnea, on nocturnal BiPAP. 12.Chronic pain on chronic narcotics. PLAN: 1. Weakness with multiple mechanical falls. Unclear etiology at this time. We will consult Physical Therapy for assistance. Suspect polypharmacy id definitely playing a role as the patient is on multiple sedating and altering medications. 2. Acute on chronic back pain. CT scan of the thoracic and lumbar spine were negative for any acute changes at [facility]; however, given concern for endplate erosions, we will check an MRI of the thoracic and lumbar spine. 3. T8-T9 endplate erosions concern for osteomyelitis versus diskitis. Follow up MRI of the thoracic and lumbar spines. Also getting ESR and CRP. 4. Acute kidney injury. Holding the patient's Lasix as well as DONATO inhibitor. Checking renal ultrasound and renal lytes, cautious IV fluid hydration. 5. Hyperkalemia. Holding the patient's DONATO inhibitor. We will recheck labs upon admission and treat as indicated. History And Physical [address] [address] NAME: MONCHO MORRISON : 54 STATUS : ADM IN PAT#: [id number] AGE: 65 ADM/REG DATE : 11/04/16 MR#: [id number] REPORT SERV DATE: 11/04/16 DICTATED BY: PILAR ROMERO DATE: 11/04/16 REPORT STATUS : Draft TRANSCRIBED BY: YASMINE DATE: 11/04/16 6. Urinary tract infection. Unfortunately, this was not a sterile sample. She is also asymptomatic; however, given reports of encephalopathy and weakness, we will empirically place the patient on some IV Rocephin. 7. Encephalopathy. The patient currently is alert and oriented x3 with no evidence of any sedation or confusion on my part. She denies any confusion. She states that is her family and caregivers are concerned. CT scan of the brain was unremarkable. She does have evidence of possible urinary tract infection. She is also on multiple sedating and altering medications which we will limit for sedation. Also checking basic labs including thyroid function studies, ammonia level. 8. Hypertension. We will increase the patient's Norvasc to 10 mg daily given that I am holding her lisinopril at this time. 9. Chronic diastolic congestive heart failure. The patient currently appears euvolemic at this time. Checking chest x-ray as well as BNP as I am going to provide some gentle IV fluid hydration for her acute kidney injury. 10.Insulin-dependent diabetes mellitus type [address] the patient on level 2 sliding scale. Continue the patient's home long-acting insulin. 11.Chronic pain, on chronic narcotics. Holding the patient's home Opana, but we will continue her p.r.n. Roxicodone and gabapentin. 12.Obstructive sleep apnea, on BiPAP therapy. I do not know her settings, but we will place the patient on some empiric BiPAP nocturnally. 13.COPD, on 2 L via nasal cannula. I do not appreciate any acute exacerbation at this time. We will continue the patient's home 2 L. 14.DVT prophylaxis. The patient is already on therapeutic anticoagulation. CODE STATUS: The patient wished to be full code. EUGENE/YASMINE Pilar Romero MD / [id number] CC: Lupe Marley Dr.
--- NOTE | ~2016-11-03 | DS ---
Discharge Summary [facility] [address] [address] [place]. [address] NAME: MONCHO MORRISON : 54 STATUS : DIS IN PAT#: [id number] AGE: 66 ADM/REG DATE : 11/04/16 MR#: [id number] REPORT SERV DATE: 11/08/16 DICTATED BY: THOMAS SHETTY DATE: 11/07/16 REPORT STATUS : Draft TRANSCRIBED BY: MODL DATE: 11/07/16 ADMISSION DATE: 11/04/2016 DISCHARGE DATE: 11/07/2016 DISCHARGE DIAGNOSES: 1. Acute on chronic lower back pain. 2. Generalized weakness and frequent falls. 3. Type 2 diabetes. 4. Morbid obesity. 5. Chronic diastolic congestive heart failure. 6. Chronic obstructive pulmonary disease. 7. Chronic hypoxic respiratory failure. 8. Acute kidney injury, present on admission, improved. 9. Hypertension. 10.Acute encephalopathy, improved. 11.Obstructive sleep apnea, treated with BiPAP. CONSULTANTS: Shree Nur D.O., of Spine Surgery. PROCEDURES: None. HOSPITAL COURSE: This is a 65-year-old lady who was admitted to the hospital with initial complaints of frequent falls and generalized weakness as well as a degree of acute kidney injury and mild acute encephalopathy. For details, please refer to excellent H and P dictated by Dr. Lamont Cruz. In summary, the patient was admitted and was evaluated with an MRI of the thoracic and lumbar spine. The patient was also seen by Dr. Nur from Spine Surgery. The patient did have probable degenerative disk changes of the T9-T10 spine as well as mild lower thoracic spondylosis and mild central canal stenosis at T9-T10. However, the patient was still able to function really well, and after Physical Therapy evaluation, the patient was actually cleared for discharge home with home health. The patient was also seen by Dr. Nur who felt that the patient's case is not a surgical case and there was nothing more that needed to be done. At that point in time, the patient was felt appropriate for discharge home with close outpatient followup. The patient and family were agreeable, and she is now being discharged home a day prior to her birthday. DISPOSITION: Home with home health. DISCHARGE MEDICATIONS: No changes. FOLLOWUP: Please follow up with PCP in the next one to two weeks. A total of 35 minutes spent in coordinating this patient's discharge today. JERONicholas/YASMINE Discharge Summary [place] [address] [address] NAME: MONCHO MORRISON : 54 STATUS : DIS IN PAT#: [id number] AGE: 66 ADM/REG DATE : 11/04/16 MR#: [id number] REPORT SERV DATE: 11/08/16 DICTATED BY: THOMAS SHETTY DATE: 11/07/16 REPORT STATUS : Draft TRANSCRIBED BY: YASMINE DATE: 11/07/16 Thomas Shetty MD / [id number] CC: Thomas Shetty MD
[~2016-11-03 21:13] MED LIST changes: +ALBUTEROL0.083 % INH; +AT25 PO; +K500 PO; +KDUR20 PO; +MACROBID PO; +NOVOPEN SC; +STERAPRED DS10 MG PO; +X5 PO
[2016-11-04 05:56] LABS: B NATRIURETIC PEPTIDE (BNP) 252.4 PG/ML (< 100.0)
[2016-11-04 06:00] LABS: BASOPHILS 0.3 %; BASOPHILS ABSOLUTE 0.02 10/3/uL (0.0-0.16); EOSINOPHILS 3.4 %; EOSINOPHILS ABSOLUTE 0.27 10/3/uL (0.0-0.53); HEMATOCRIT 36.2 % (36.0-48.0); IMMATURE GRANULOCYTES 0.4 %; IMMATURE GRANULOCYTES ABSOLUTE 0.03 10/3/uL (0.0-0.11); LYMPHOCYTES 21.7 %; MEAN CORPUS HGB CONC 30.4 g/dL (32.0-36.0); MEAN CORPUSCULAR HEMOGLOB 26.8 pg (26.0-34.0); MEAN CORPUSCULAR VOLUME 88.3 fL (80-100); MEAN PLATELET VOLUME 11.3 fL (9.2-13.0); MONOCYTES 6.1 %; MONOCYTES ABSOLUTE 0.48 10/3/uL (0.21-1.20); NEUTROPHILS 68.1 %; NEUTROPHILS ABSOLUTE 5.35 10/3/uL (2.02-8.40); PLATELET COUNT 192 10/3/uL (150-400); RBC DISTRIBUTION WIDTH 15.2 % (12.0-16.0)
[2016-11-04 06:02] LABS: MANUAL DIFF NO %; WHITE BLOOD CELLS 7.9 10/3/uL (4.5-10.5)
[2016-11-04 06:03] LABS: INTERNATIONAL NORMAL RATI 1.2 UNITS (-); PARTIAL THROMBO TIME 23.3 SEC (22.5-37.2); PROTIME (NOT ORD) 15.3 SEC (12.0-14.5)
[2016-11-04 06:07] LABS: A/G RATIO 0.7 (0.7-1.9); ALBUMIN 2.7 G/DL (3.5-5.0); ALKALINE PHOSPHATASE 64 U/L (45-117); C-REACTIVE PROTEIN 9.8 MG/L (<8.0); CALCIUM, SERUM 8.7 MG/DL (8.5-10.4); CHLORIDE, SERUM 101 MMOL/L (96-112); CREATININE 1.26 MG/DL (0.55-1.02); GFR AFRICAN AMERICAN 53 ML/MIN (>=60); GFR NON AFRICAN AMERICAN 45 ML/MIN (>=60); GLOBULIN 3.7 G/DL (2.5-4.1); GLUCOSE, SERUM 153 MG/DL (60-99); POTASSIUM, SERUM 4.5 MMOL/L (3.5-5.3); SGPT(ALT) 30 U/L (5-65); SODIUM, SERUM 137 MMOL/L (135-148); TOTAL BILIRUBIN 0.2 MG/DL (0-1.2); TOTAL PROTEIN 6.4 G/DL (6.0-8.5)
[2016-11-04 06:09] LABS: BUN (BLOOD UREA NITROGEN) 22 MG/DL (6-23); CO2 (CARBON DIOXIDE) 27 MMOL/L (24-34); SGOT(AST) 45 U/L (5-40)
[2016-11-04 06:14] LABS: PLATELET ESTIMATE ADQ (ADEQUATE); RBC MORPHOLOGY NORM (NORMAL)
[2016-11-04 07:30] LABS: ASCORBIC ACID (UR NOT ORDER) NEG (NEG); BILIRUBIN, URINE NEGATIVE (NEG); KETONE, URINE NEGATIVE (NEG); LEUKOCYTE ESTERASE(NOT OR LARGE (NEG); WBC (NOT ORDERED) (RFLEX) 29 (0-5)
[2016-11-04 07:38] LABS: AMPHETAMINES (NOT ORD) NEG (NEG); BARBITURATES (NOT ORDERED NEG (NEG); BENZODIAZEPINES (NOT ORD) NEG (NEG); CANNABINOIDS (THC) NEG (NEG); COCAINE (NOT ORDERED) NEG (NEG); OPIATES POS (NEG); PHENCYCLIDINE(PCP) NEG (NEG); TRICYCLICS NEG (NEG)
[2016-11-04 07:39] LABS: CREATININE, URINE 81.4 MG/DL
[2016-11-05 05:15] LABS: BASOPHILS 0.4 %; BASOPHILS ABSOLUTE 0.02 10/3/uL (0.0-0.16); EOSINOPHILS 5.9 %; EOSINOPHILS ABSOLUTE 0.33 10/3/uL (0.0-0.53); HEMATOCRIT 36.8 % (36.0-48.0); HEMOGLOBIN 11.3 g/dL (12.0-16.0); IMMATURE GRANULOCYTES 0.2 %; IMMATURE GRANULOCYTES ABSOLUTE 0.01 10/3/uL (0.0-0.11); LYMPHOCYTES 28.3 %; LYMPHOCYTES ABSOLUTE 1.58 10/3/uL (0.67-4.30); MANUAL DIFF NO %; MEAN CORPUS HGB CONC 30.7 g/dL (32.0-36.0); MEAN CORPUSCULAR HEMOGLOB 26.9 pg (26.0-34.0); MEAN CORPUSCULAR VOLUME 87.6 fL (80-100); MEAN PLATELET VOLUME 10.8 fL (9.2-13.0); MONOCYTES 8.9 %; NEUTROPHILS 56.3 %; NEUTROPHILS ABSOLUTE 3.15 10/3/uL (2.02-8.40); PLATELET COUNT 224 10/3/uL (150-400); WHITE BLOOD CELLS 5.6 10/3/uL (4.5-10.5)
[2016-11-05 05:29] LABS: CALCIUM, SERUM 9.1 MG/DL (8.5-10.4); CHLORIDE, SERUM 101 MMOL/L (96-112); CO2 (CARBON DIOXIDE) 31 MMOL/L (24-34); CREATININE 0.81 MG/DL (0.55-1.02); GFR AFRICAN AMERICAN 90 ML/MIN (>=60); GFR NON AFRICAN AMERICAN 77 ML/MIN (>=60); POTASSIUM, SERUM 4.1 MMOL/L (3.5-5.3); SODIUM, SERUM 140 MMOL/L (135-148)
[2016-11-05 05:30] LABS: BUN (BLOOD UREA NITROGEN) 11 MG/DL (6-23); GLUCOSE, SERUM 67 MG/DL (60-99)
[2016-11-06 06:56] LABS: BASOPHILS 0.3 %; BASOPHILS ABSOLUTE 0.02 10/3/uL (0.0-0.16); EOSINOPHILS ABSOLUTE 0.46 10/3/uL (0.0-0.53); HEMATOCRIT 35.8 % (36.0-48.0); HEMOGLOBIN 11.1 g/dL (12.0-16.0); IMMATURE GRANULOCYTES 0.5 %; IMMATURE GRANULOCYTES ABSOLUTE 0.03 10/3/uL (0.0-0.11); LYMPHOCYTES ABSOLUTE 1.57 10/3/uL (0.67-4.30); MANUAL DIFF NO %; MEAN CORPUSCULAR HEMOGLOB 27.3 pg (26.0-34.0); MEAN CORPUSCULAR VOLUME 88.2 fL (80-100); MEAN PLATELET VOLUME 10.5 fL (9.2-13.0); MONOCYTES 7.2 %; MONOCYTES ABSOLUTE 0.47 10/3/uL (0.21-1.20); NEUTROPHILS ABSOLUTE 3.98 10/3/uL (2.02-8.40); PLATELET COUNT 246 10/3/uL (150-400); RBC DISTRIBUTION WIDTH 14.8 % (12.0-16.0); RED CELL COUNT 4.06 10/6/uL (4.0-5.6); WHITE BLOOD CELLS 6.5 10/3/uL (4.5-10.5)
[2016-11-06 07:06] LABS: BUN (BLOOD UREA NITROGEN) 10 MG/DL (6-23); CALCIUM, SERUM 8.7 MG/DL (8.5-10.4); CHLORIDE, SERUM 102 MMOL/L (96-112); CO2 (CARBON DIOXIDE) 32 MMOL/L (24-34); CREATININE 0.89 MG/DL (0.55-1.02); GFR AFRICAN AMERICAN 80 ML/MIN (>=60); GFR NON AFRICAN AMERICAN 69 ML/MIN (>=60); POTASSIUM, SERUM 4.2 MMOL/L (3.5-5.3); SODIUM, SERUM 140 MMOL/L (135-148)
[2016-11-06 07:07] LABS: GLUCOSE, SERUM 137 MG/DL (60-99)
[2016-11-07 05:44] LABS: BASOPHILS 0.3 %; BASOPHILS ABSOLUTE 0.02 10/3/uL (0.0-0.16); EOSINOPHILS 7.1 %; EOSINOPHILS ABSOLUTE 0.47 10/3/uL (0.0-0.53); HEMATOCRIT 36.7 % (36.0-48.0); HEMOGLOBIN 11.3 g/dL (12.0-16.0); IMMATURE GRANULOCYTES 0.3 %; IMMATURE GRANULOCYTES ABSOLUTE 0.02 10/3/uL (0.0-0.11); LYMPHOCYTES ABSOLUTE 1.53 10/3/uL (0.67-4.30); MEAN CORPUS HGB CONC 30.8 g/dL (32.0-36.0); MEAN CORPUSCULAR HEMOGLOB 27.4 pg (26.0-34.0); MEAN CORPUSCULAR VOLUME 88.9 fL (80-100); MEAN PLATELET VOLUME 10.8 fL (9.2-13.0); MONOCYTES 8.1 %; MONOCYTES ABSOLUTE 0.54 10/3/uL (0.21-1.20); NEUTROPHILS 61.2 %; NEUTROPHILS ABSOLUTE 4.06 10/3/uL (2.02-8.40); PLATELET COUNT 256 10/3/uL (150-400); RBC DISTRIBUTION WIDTH 14.6 % (12.0-16.0); RED CELL COUNT 4.13 10/6/uL (4.0-5.6); WHITE BLOOD CELLS 6.6 10/3/uL (4.5-10.5)
[2016-11-07 05:45] LABS: MANUAL DIFF NO %
[2016-11-07 05:57] LABS: CALCIUM, SERUM 9.2 MG/DL (8.5-10.4); CHLORIDE, SERUM 99 MMOL/L (96-112); CO2 (CARBON DIOXIDE) 31 MMOL/L (24-34); CREATININE 0.93 MG/DL (0.55-1.02); GFR AFRICAN AMERICAN 76 ML/MIN (>=60); GFR NON AFRICAN AMERICAN 65 ML/MIN (>=60); POTASSIUM, SERUM 3.9 MMOL/L (3.5-5.3); SODIUM, SERUM 137 MMOL/L (135-148)
[2016-11-07 05:59] LABS: BUN (BLOOD UREA NITROGEN) 15 MG/DL (6-23); GLUCOSE, SERUM 177 MG/DL (60-99)
[2016-11-07] MEDS ORDERED: OXYCOD PO (12:18)
== END 2016-11-07 19:34 | disposition home health service (06) | DRG 551 ==
LOC: ENRESERV → ENRESERVDT → ENRESERVTM → 6NO 11-04 01:01 → ENPENDDIS 11-04 01:01 → 6NO 11-07 19:34
PROVIDERS: Internal Medicine
DX: M47.814 Spondylosis without myelopathy or radiculopathy, thoracic region (principal); G93.41 Metabolic encephalopathy; J96.11 Chronic respiratory failure with hypoxia; N17.9 Acute kidney failure, unspecified; J96.12 Chronic respiratory failure with hypercapnia; I50.32 Chronic diastolic (congestive) heart failure; N18.3 Chronic kidney disease, stage 3 (moderate); N39.0 Urinary tract infection, site not specified; Z68.42 Body mass index [BMI] 45.0-49.9, adult; M51.34 Other intervertebral disc degeneration, thoracic region; J44.9 Chronic obstructive pulmonary disease, unspecified; E11.40 Type 2 diabetes mellitus with diabetic neuropathy, unspecified; G89.29 Other chronic pain; E87.5 Hyperkalemia; E66.01 Morbid (severe) obesity due to excess calories; E11.65 Type 2 diabetes mellitus with hyperglycemia; K21.9 Gastro-esophageal reflux disease without esophagitis; W19.XXXA Unspecified fall, initial encounter; G47.33 Obstructive sleep apnea (adult) (pediatric); Z91.81 History of falling; Z79.4 Long term (current) use of insulin; Z86.73 Personal history of transient ischemic attack (TIA), and cerebral infarction without residual deficits; Z79.891 Long term (current) use of opiate analgesic; Z79.01 Long term (current) use of anticoagulants; Z87.440 Personal history of urinary (tract) infections; Z90.710 Acquired absence of both cervix and uterus; Z90.49 Acquired absence of other specified parts of digestive tract; Z88.0 Allergy status to penicillin; Z88.2 Allergy status to sulfonamides; Z88.1 Allergy status to other antibiotic agents; Z88.6 Allergy status to analgesic agent; Z99.81 Dependence on supplemental oxygen; Z98.1 Arthrodesis status
CPT/HCPCS: 71010; 72146; 72148; 76775; 80048; 80053; 80305; 81001; 82140; 82570; 82607; 82962; 83735; 83880; 83935; 84145; 84300; 84443; 85025; 85610; 85652; 85730; 86140; 87077; 87086; 87186; 94640; 94660; 97162-GP; A9270-GY; G8978-CJ-GP; G8979-CI-GP; J2250; J2405; J2550; J2710; J3010; J3475